=== PATIENT | female | born 1965 | race Caucasian/White ===

== ENCOUNTER 2019-12-24 05:19 | Emergency (ER) | payer BC, SELFPAY ==
[2019-12-24 05:25] VITALS: BP 134/72; PULSE 54; PULSE 65; RESP 18; TEMP 36.7; O2SAT 100; O2SAT 99; BMI 22.5
[2019-12-24 05:31] VITALS: BP 137/77; PULSE 62; RESP 18; TEMP 36.7; O2SAT 99
--- NOTE | 2019-12-24 05:59 | ED_ITS ---
HPI - Back Pain/Injury General Chief Complaint: Back Pain/Injury Stated Complaint: low back pain Time Seen by Provider: 12/24/19 05:59 History of Present Illness HPI Narrative: this is a 54-year-old female who presents via EMS with complaints of initially starting to have some back pain yesterday morning after she returned from her walk and states that it is left lower back with wrapping around to the anterior abdominal area and she denies any associated bowel or bladder dysfunction as well as denying numbness/ tingling / weakness into either lower extremity. However, the pain has made it difficult for her to walk and this has not been associated with any fever, chills, vomiting, diarrhea but she does states she has had some mild nausea and what she believes to be increased urinary frequency. Related Data Home Medications Medication Instructions Recorded Confirmed levothyroxine [Synthroid] 100 mcg PO DAILY 12/24/19 12/24/19 liothyronine 5 mcg PO DAILY 12/24/19 12/24/19 Previous Rx's Medication Instructions Recorded ketorolac 10 mg PO Q6H PRN 5 Days #20 tab 12/24/19 Allergies Allergy/AdvReac Type Severity Reaction Status Date / Time Sulfa (Sulfonamide Allergy Intermediate HIVES Verified 12/24/19 05:23 Antibiotics) Review of Systems Review of Systems: Pertinent positives and negatives as stated in the HPI 10 point review of systems is otherwise negative. [facility] Past Medical History Source: nursing notes reviewed Medical History Thyroid cancer Surgical History Status post removal of thyroid nodule Social History Social History Alcohol intake: current Alcohol intake frequency: holidays/special occasions only Alcohol type: other Smoking Status: Never smoker Smoked in Last 30 Days: No Use of substances other than those prescribed or required for medical reasons: No Advance Directives: No Advance Directives Information Provided: No Physical Exam Vital Signs: Vital Signs: Vital Signs Temp Pulse Resp BP Pulse Ox 12/24/19 05:31 98.1 F 62 18 137/77 99 12/24/19 05:25 98.1 F 54 18 99 Body Mass Index 22.5 VITAL SIGNS: Reviewed. GENERAL: Well developed, well nourished, in no acute distress. HEAD: Normocephalic/atraumatic, EYES: PERRLA, EOMI intact without pain, no nystagmus/pallor/icterus noted EARS: Ext canals without abnormality, TMs non-bulging and non-erythematous NOSE: Nares patent bilateral OROPHARYNX: no oral lesions noted, posterior pharynx clear and non-erythematous without noted tonsillar enlargement/erythema/exudates NECK: Supple, no adenopathy LUNGS: Normal breath sounds. No adventitious sounds or accessory muscle use. SpO2<99%> BACK: No CVA tenderness, no appreciable muscle spasm CARDIOVASCULAR: Regular rate and rhythm without noted murmurs, no JVD or lower extremity edema. ABDOMEN: Soft, non-tender, non-distended with bowel sounds. No rigidity. No guarding. No palpable masses or hernias noted MUSCULOSKELETAL: No tenderness, deformities, or effusions noted on gross inspection. EXTREMITIES: No cyanosis, clubbing or edema. SKIN: Inspection of the skin reveals no rashes, ulcerations, jaundice, pallor, or petechiae. NEUROLOGIC: Alert and oriented x 4. Strength and sensation to light touch were grossly intact x 4. Course Course Course Narrative: This is a 54-year-old female with history and clinical presentation suggestive of back spasm and less likely renal colic, UTI, pyelonephritis and doubt diverticulitis. - labs - UA - pain medication On review of all investigations there is no evidence for an acute infection, anemia, electrolyte abnormality, or UTI. In addition, there is no evidence renal colic and patient has had improvement in pain symptoms after having received combination Tylenol/ Toradol. Patient was informed all results and findings and will be provided a lidocaine patch and then discharged home in stable condition with a analgesic regimen and instructed to follow-up with her primary care provider. MDM - Back Pain/Injury Lab Data Result diagrams: 12/24/19 06:20 12/24/19 06:20 Labs: Lab Results 12/24/19 12/24/19 12/24/19 Range/Units 06:20 06:20 06:37 WBC 4.5 L (4.8-10.8) X10*3/uL RBC 4.51 (4.20-5.50) X10*6/uL Hgb 13.7 (12.0-16.0) g/dl Hct 40.7 (37-47) % MCV 90.2 (80-98) fL MCH 30.4 (27.0-33.0) pg MCHC 33.7 (31.0-35.0) g/dl RDW 12.1 (11.0-16.0) % Plt Count 251 (160-400) X10*3/uL MPV 9.1 L (9.4-12.3) fL Immature Gran % (Auto) 0.2 (0.0-0.4) % Neut % (Auto) 59.6 (45-73) % Lymph % (Auto) 28.0 (20-40) % [place] % (Auto) 9.3 (2-11) % Eos % (Auto) 2.2 (0-4) % Baso % (Auto) 0.7 (0-2) % Lymph # (Auto) 1.3 (1.2-4.9) X10*3/uL [place] # (Auto) 0.4 (0.1-1.2) X10*3/uL Eos # (Auto) 0.1 (0.0-0.4) X10*3/uL Baso # (Auto) 0.0 (0.0-0.2) X10*3/uL Abs Immat Gran (auto) 0.01 (0.00-0.03) X10*3/uL Absolute Neuts (auto) 2.7 (2.0-8.3) X10*3/uL Absolute Nucleated RBC 0.000 (0.0-0.012) X10*3/uL Nucleated RBC % (auto) 0.0 (0.0-0.2) /100WBC Sodium 135 (135-145) mmol/L Potassium 4.4 (3.3-5.1) mmol/l Chloride 103 (96-108) mmol/L Carbon Dioxide 25 (22-29) mmol/L Anion Gap 11 L (12-20) BUN 17 H (9-16) mg/dL Creatinine 0.81 (0.5-1.4) mg/dL Estim Creat Clear Calc 71.4 Estimated GFR > 60 Random Glucose 95 (60-115) mg/dL Calcium 9.6 (8.4-10.2) mg/dL Total Bilirubin 0.5 (0.0-1.0) mg/dL AST 15 (5-31) U/L ALT 16 (0-31) U/L Alkaline Phosphatase 73 (39-117) U/L Total Protein 6.6 (6.5-8.0) g/dL Albumin 4.0 (3.5-5.0) g/dL Urine Color YELLOW Urine Appearance CLEAR Urine pH 5.5 (5.0-8.0) Ur Specific [place] 1.010 (1.005-1.025) Urine Protein NEG (NEG-TRACE) MG/DL Urine Glucose (UA) NEG (NEG) MG/DL Urine Ketones NEG (NEG) MG/DL Urine Blood NEG (NEG) Urine Nitrite NEG (NEG) Ur Leukocyte Esterase NEG (NEG) Discharge Plan Discharge Clinical Impression: Muscle spasm of back Patient Disposition: Home, Self-Care Instructions: Muscle Spasm (ED) Additional Instructions: 1. Tylenol 1000 mg, orally, every 6 hours as needed for pain control. Do not exceed 4000 mg within 24 hours. 2. Lidocaine patch, available at any drug store, apply to area of maximal tenderness as directed on the outside packaging. 3. Please follow-up with your primary care provider for further evaluation and management as an outpatient. The patient and/or family acknowledge understanding of results (as applicable), diagnosis, treatment plan, need for follow up, and symptoms that should prompt a return to the emergency room. Prescriptions: New ketorolac 10 mg tablet 10 mg PO Q6H PRN (Reason: pain) 5 Days Qty: 20 RF: 0 No Action liothyronine 5 mcg tablet 5 mcg PO DAILY RF: 0 levothyroxine [Synthroid] 100 mcg Tablet 100 mcg PO DAILY RF: 0 Referrals: River Vasquez MD [Primary Care Provider] - 2 days ( back spasm)
[2019-12-24] MEDS: Acetaminophen 325 MG TABLET 975 MG PO (06:14)
[2019-12-24 06:26] LABS: MANUAL DIFF FLAG NO
[2019-12-24 06:39] LABS: Basophils Percent Auto 0.7 % (0-2); Eosinophils Absolute Auto 0.1 X10*3/uL (0.0-0.4); Eosinophils Percent Auto 2.2 % (0-4); Hematocrit 40.7 % (37-47); Hemoglobin 13.7 g/dl (12.0-16.0); Imm Gran Abs Auto 0.01 X10*3/uL (0.00-0.03); Imm Gran Pct Auto 0.2 % (0.0-0.4); Lymphocytes Absolute Auto 1.3 X10*3/uL (1.2-4.9); Mean Corpuscular HGB Conc 33.7 g/dl (31.0-35.0); Mean Corpuscular Hemoglobin 30.4 pg (27.0-33.0); Mean Corpuscular Volume 90.2 fL (80-98); Mean Platelet Volume 9.1 fL (9.4-12.3); Monocytes Absolute Auto 0.4 X10*3/uL (0.1-1.2); Monocytes Percent Auto 9.3 % (2-11); Neutrophils Absolute Auto 2.7 X10*3/uL (2.0-8.3); Neutrophils Percent Auto 59.6 % (45-73); Platelet Count 251 X10*3/uL (160-400); Red Blood Count 4.51 X10*6/uL (4.20-5.50); Red Cell Distribution Width 12.1 % (11.0-16.0); White Blood Count 4.5 X10*3/uL (4.8-10.8)
[2019-12-24 06:50] LABS: Glucose Urine UA NEG (NEG); Leukocyte Esterase Urine NEG (NEG); Nitrite Urine NEG (NEG); PH 5.5 (5.0-8.0); Urine Blood NEG (NEG); Urine Ketones NEG (NEG); Urine Protein NEG (NEG-TRACE)
[2019-12-24 06:52] LABS: Appearance Urine CLEAR; Color Urine YELLOW
[2019-12-24 07:04] LABS: Alanine Aminotransferase 16 U/L (0-31); Alkaline Phosphatase 73 U/L (39-117); Anion Gap 11 (12-20); Aspartate Amino Transferase 15 U/L (5-31); Bilirubin Total 0.5 mg/dL (0.0-1.0); Blood Urea Nitrogen 17 mg/dL (9-16); Calcium 9.6 mg/dL (8.4-10.2); Carbon Dioxide 25 mmol/L (22-29); Chloride 103 mmol/L (96-108); Creatinine Clr Calc Pharmacy 71.4; Estimated Glomerular Filt Rate > 60; Glucose Random 95 mg/dL (60-115); Potassium 4.4 mmol/l (3.3-5.1); Sodium 135 mmol/L (135-145); Total Protein 6.6 g/dL (6.5-8.0)
[2019-12-24] MEDS: Lidocaine 4 % Patch ADH..PATCH 1 PATCH TRANSDERMA (07:53)
== END 2019-12-24 08:24 | disposition home or self-care (01) ==
PROVIDERS: Emergency Provider Student in an Organized Health Care Education/Training Program; PCP Family Medicine
DX: M62.830 Muscle spasm of back (principal); Z85.850 Personal history of malignant neoplasm of thyroid
CPT/HCPCS: 36415; 80053; 81003; 85025; 96374; 99284

== ENCOUNTER 2019-12-26 11:35 | Outpatient (REF) | payer BC, SELFPAY ==
--- NOTE | 2019-12-26 11:42 | XR_ITS ---
EXAMINATION: XR LUMBOSACRAL SPINE CLINICAL INFORMATION: Muscle pain and spasm. COMPARISON: CT scan of the abdomen and pelvis 10/11/2017. TECHNIQUE: Three views of the lumbosacral spine. FINDINGS: Alignment is normal. Vertebral body heights are preserved. No acute fracture. Intervertebral disc spaces are maintained. Sacroiliac joints are symmetric. Visualized bowel gas pattern is normal. XR/XR lumbar spine 2-3V IMPRESSION: Normal lumbar spine radiographs.
== END 2019-12-26 11:36 | disposition home or self-care (01) ==
LOC: HO.XRAY 11:35
PROVIDERS: PCP Family Medicine; Visit Provider Family Medicine
DX: M62.838 Other muscle spasm (principal); R52 Pain, unspecified
CPT/HCPCS: 72100

== ENCOUNTER 2020-01-21 09:06 | Outpatient (REF) | payer BC, SELFPAY ==
[2020-01-21 10:45] LABS: MANUAL DIFF FLAG NO
[2020-01-21 10:57] LABS: Basophils Percent Auto 0.8 % (0-2); Eosinophils Absolute Auto 0.1 X10*3/uL (0.0-0.4); Eosinophils Percent Auto 1.5 % (0-4); Hematocrit 41.6 % (37-47); Hemoglobin 13.8 g/dl (12.0-16.0); Imm Gran Abs Auto 0.01 X10*3/uL (0.00-0.03); Imm Gran Pct Auto 0.2 % (0.0-0.4); Lymphocytes Absolute Auto 1.7 X10*3/uL (1.2-4.9); Lymphocytes Percent Auto 33.5 % (20-40); Mean Corpuscular HGB Conc 33.2 g/dl (31.0-35.0); Mean Corpuscular Hemoglobin 29.9 pg (27.0-33.0); Mean Corpuscular Volume 90.2 fL (80-98); Mean Platelet Volume 9.3 fL (9.4-12.3); Monocytes Absolute Auto 0.5 X10*3/uL (0.1-1.2); Monocytes Percent Auto 8.9 % (2-11); Neutrophils Absolute Auto 2.9 X10*3/uL (2.0-8.3); Neutrophils Percent Auto 55.1 % (45-73); Platelet Count 255 X10*3/uL (160-400); Red Blood Count 4.61 X10*6/uL (4.20-5.50); Red Cell Distribution Width 11.9 % (11.0-16.0); White Blood Count 5.2 X10*3/uL (4.8-10.8)
[2020-01-21 11:31] LABS: Alanine Aminotransferase 15 U/L (0-31); Albumin Level 4.4 g/dL (3.5-5.0); Alkaline Phosphatase 83 U/L (39-117); Anion Gap 11 (12-20); Aspartate Amino Transferase 16 U/L (5-31); Bilirubin Total 0.4 mg/dL (0.0-1.0); Blood Urea Nitrogen 9 mg/dL (9-16); Calcium 9.7 mg/dL (8.4-10.2); Carbon Dioxide 28 mmol/L (22-29); Chloride 101 mmol/L (96-108); Estimated Glomerular Filt Rate > 60; Glucose Random 61 mg/dL (60-115); Lipase 35 U/L (8-78); Potassium 4.2 mmol/l (3.3-5.1); Sodium 136 mmol/L (135-145); Total Protein 6.9 g/dL (6.5-8.0)
[2020-01-21 11:57] LABS: Erythrocyte Sedimentation Rate 8 MM/HR (0-20)
== END 2020-01-21 09:07 | disposition home or self-care (01) ==
LOC: HO.10HDL 09:06
PROVIDERS: Visit Provider Family Medicine
DX: R11.0 Nausea (principal); M54.9 Dorsalgia, unspecified; R10.13 Epigastric pain
CPT/HCPCS: 36415; 80053; 83690; 85025; 85652

== ENCOUNTER 2020-06-02 17:17 | Outpatient (REF) | payer BC, SELFPAY ==
[2020-06-02 18:07] LABS: MANUAL DIFF FLAG NO
[2020-06-02 18:09] LABS: Basophils Percent Auto 0.5 % (0-2); Eosinophils Absolute Auto 0.1 X10*3/uL (0.0-0.4); Eosinophils Percent Auto 1.4 % (0-4); Hematocrit 41.4 % (37-47); Hemoglobin 13.9 g/dl (12.0-16.0); Imm Gran Abs Auto 0.01 X10*3/uL (0.00-0.03); Imm Gran Pct Auto 0.2 % (0.0-0.4); Lymphocytes Absolute Auto 2.3 X10*3/uL (1.2-4.9); Lymphocytes Percent Auto 36.3 % (20-40); Mean Corpuscular HGB Conc 33.6 g/dl (31.0-35.0); Mean Corpuscular Hemoglobin 30.3 pg (27.0-33.0); Mean Corpuscular Volume 90.2 fL (80-98); Mean Platelet Volume 9.7 fL (9.4-12.3); Monocytes Absolute Auto 0.6 X10*3/uL (0.1-1.2); Monocytes Percent Auto 9.2 % (2-11); Neutrophils Absolute Auto 3.3 X10*3/uL (2.0-8.3); Neutrophils Percent Auto 52.4 % (45-73); Platelet Count 276 X10*3/uL (160-400); Red Blood Count 4.59 X10*6/uL (4.20-5.50); Red Cell Distribution Width 12.4 % (11.0-16.0); White Blood Count 6.3 X10*3/uL (4.8-10.8)
[2020-06-02 18:30] LABS: Alanine Aminotransferase 18 U/L (0-31); Albumin Level 4.4 g/dL (3.5-5.0); Alkaline Phosphatase 77 U/L (39-117); Anion Gap 13 (12-20); Aspartate Amino Transferase 16 U/L (5-31); Bilirubin Total 0.3 mg/dL (0.0-1.0); Blood Urea Nitrogen 15 mg/dL (9-16); Calcium 9.6 mg/dL (8.4-10.2); Carbon Dioxide 29 mmol/L (22-29); Chloride 102 mmol/L (96-108); Estimated Glomerular Filt Rate > 60; Glucose Random 87 mg/dL (60-115); Potassium 3.7 mmol/L (3.3-5.1); Sodium 140 mmol/L (135-145); Total Protein 7.2 g/dL (6.5-8.0)
[2020-06-02 18:51] LABS: Free T4 (Free Thyroxine) 1.04 ng/dL (0.71-1.85); Thyroid Stimulating Hormone 0.34 uIU/mL (0.32-4.0)
== END 2020-06-02 17:18 | disposition home or self-care (01) ==
LOC: HO.LAB 17:17
PROVIDERS: PCP Family Medicine; Visit Provider Family Medicine
DX: R53.83 Other fatigue (principal); R55 Syncope and collapse; E03.9 Hypothyroidism, unspecified
CPT/HCPCS: 36415; 80053; 84439; 84443; 85025

== ENCOUNTER 2020-08-06 09:17 | Outpatient (REF) | payer BC, SELFPAY ==
--- NOTE | ~2020-08-06 | MM_ITS ---
EXAMINATION: MM SCREENING DIGITAL BREAST TOMOSYNTHESIS, BILATERAL CLINICAL INFORMATION: Screening. Asymptomatic. Prior history left breast biopsy at 2 sites (no clips placed, fibroadenoma). Prior history right breast ultrasound-guided core biopsies (fibroadenomas, clips present). The lifetime risk of breast cancer based on the Tyrer-Cuzick Model is 9%. COMPARISON: Mammography: 02/07/2019, 02/20/2017, 07/23/2015; targeted left breast ultrasound 07/23/2015. TECHNIQUE: Digital breast tomosynthesis is performed in both the craniocaudal and mediolateral oblique views along with computer-aided detection (CAD). Synthesized 2D images are generated from the tomosynthesis. FINDINGS: There are scattered areas of fibroglandular density (ACR BI-RADS breast composition Category b). There are no significant changes from prior studies. Again, there are 2 stable masses right breast mid and posterior upper outer quadrant with adjacent biopsy clip markers and stable nodular asymmetries retroareolar and medial left breast. There is no developing density or interval mass or architectural abnormality. Again, there are numerous grouped calcifications which are similar in distribution and number from prior study. There is mild chronic bilateral nipple retraction. MM/MM tomosynthesis screening BI IMPRESSION: No significant changes from prior studies. ASSESSMENT: BI-RADS 2: Benign RECOMMENDATION: Routine annual mammography screening. This patient's information was entered into a reminder system with a target due date for their next mammogram.
== END 2020-08-06 09:18 | disposition home or self-care (01) ==
LOC: HO.MAMMO 09:17
PROVIDERS: Visit Provider Obstetrics & Gynecology
DX: Z12.31 Encounter for screening mammogram for malignant neoplasm of breast (principal)
CPT/HCPCS: 77063; 77067

== ENCOUNTER 2021-01-31 06:57 | Outpatient (REF) | payer BC, SELFPAY ==
[2021-01-31 07:18] LABS: MANUAL DIFF FLAG NO
[2021-01-31 07:32] LABS: Basophils Absolute Auto 0.1 X10*3/uL (0.0-0.2); Basophils Percent Auto 1.6 % (0-2); Eosinophils Absolute Auto 0.1 X10*3/uL (0.0-0.4); Eosinophils Percent Auto 2.1 % (0-4); Hematocrit 41.7 % (37.0-47.0); Hemoglobin 13.9 g/dl (12.0-16.0); Imm Gran Abs Auto 0.01 X10*3/uL (0.00-0.03); Imm Gran Pct Auto 0.2 % (0.0-0.4); Lymphocytes Absolute Auto 1.7 X10*3/uL (1.2-4.9); Lymphocytes Percent Auto 39.9 % (20-40); Mean Corpuscular HGB Conc 33.3 g/dl (31.0-35.0); Mean Corpuscular Hemoglobin 30.3 pg (27.0-33.0); Mean Corpuscular Volume 90.8 fL (80.0-98.0); Mean Platelet Volume 9.3 fL (9.4-12.3); Monocytes Absolute Auto 0.4 X10*3/uL (0.1-1.2); Monocytes Percent Auto 8.9 % (2-11); Neutrophils Absolute Auto 2.1 x10*3/uL (2.0-8.3); Neutrophils Percent Auto 47.3 % (45-73); Platelet Count 279 X10*3/uL (160-400); Red Blood Count 4.59 X10*6/uL (4.20-5.50); Red Cell Distribution Width 12.8 % (11.0-16.0); White Blood Count 4.4 X10*3/uL (4.8-10.8)
[2021-01-31 07:58] LABS: Alanine Aminotransferase 20 U/L (0-31); Albumin Level 4.2 g/dL (3.5-5.0); Alkaline Phosphatase 72 U/L (39-117); Anion Gap 13 (12-20); Aspartate Amino Transferase 17 U/L (5-31); Bilirubin Total 0.3 mg/dL (0.0-1.0); Blood Urea Nitrogen 24 mg/dL (9-16); Calcium 9.9 mg/dL (8.4-10.2); Carbon Dioxide 26 mmol/L (22-29); Chloride 103 mmol/L (96-108); Cholesterol 278 mg/dL; Estimated Glomerular Filt Rate > 60; Glucose Fasting 101 mg/dL (60-99); HDL Cholesterol 63 mg/dL; LDL Cholesterol Calculated 196 mg/dl; Potassium 4.5 mmol/L (3.3-5.1); Sodium 137 mmol/L (135-145); Total Protein 6.9 g/dL (6.5-8.0); Triglycerides 97 mg/dL
[2021-02-01 14:51] LABS: Calcium (PTHI) 9.9 mg/dL (8.6-10.4); PTHI 48 pg/mL (14-64)
== END 2021-01-31 06:58 | disposition home or self-care (01) ==
LOC: HO.LAB 06:57
PROVIDERS: PCP Internal Medicine Medical Oncology; Visit Provider Internal Medicine Medical Oncology
DX: D36.9 Benign neoplasm, unspecified site (principal); E66.3 Overweight
CPT/HCPCS: 36415; 80053; 80061; 83970; 85025

== ENCOUNTER 2021-03-11 09:10 | Outpatient (REF) | payer BC, SELFPAY ==
--- NOTE | ~2021-03-11 | MM_ITS ---
EXAMINATION: BONE DENSITOMETRY CLINICAL INDICATION: Osteoporosis. COMPARISON: This is the patient's baseline examination. TECHNIQUE: Using a [employer] DXA System (software version: 13.1) manufactured by [employer], dual-energy x-ray absorptiometry was performed of the lumbar spine and left hip. The images are of good technical quality. Summary results are attached. FINDINGS: AP SPINE L1-L4: BMD 1.032 g/cm2, Z-score -0.2, T-score -1.2, osteopenia. LEFT FEMUR, NECK: BMD 0.831 g/cm2, Z-score -0.4, T-score -1.5, osteopenia. LEFT FEMUR, TOTAL: BMD 0.960 g/cm2, Z-score 0.4, T-score -0.4, normal. IDENTIFIED RISK FACTORS: Menopause. HISTORY OF FRACTURE: None listed. MEDICATIONS: Calcium, vitamin D. MM/XR DEXA axial skeleton IMPRESSION: 1. DIAGNOSIS: Osteopenia based on the lowest T-score value of -1.5 in the femoral neck applying World Health Organization criteria. 2. 10-YEAR FRACTURE RISK PREDICTION, FRAX: Major osteoporotic fracture (clinical spine, forearm, hip or shoulder) 6.5%. Hip fracture 0.5%. 3. Treatment Recommendations: NOF guidelines recommend consideration for treatment in postmenopausal women and men age 50 and older presenting with the following: -A hip or vertebral (clinical or morphometric) fracture. -T-score less than or equal to -2.5 at the femoral neck or spine after appropriate evaluation to exclude secondary causes. -Low bone mass at the hip or spine and a 10-year fracture probability by FRAX of greater than or equal to 3% for hip fracture or greater than or equal to 20% for major osteoporotic fracture based on the [place] adapted WHO algorithm. 4. Other Recommendations: All treatment decisions require clinical judgment and consideration of individual patient factors, including patient preferences, comorbidities, previous drug use, risk factors not captured in the FRAX model (e.g. frailty, falls, vitamin D deficiency, increased bone turnover, interval significant decline in bone density) and possible under or overestimation of fracture risk by FRAX. Additional medical evaluation for secondary cause of low bone mineral density may be appropriate. FUTURE SCAN RECOMMENDATION: People with diagnosed cases of osteoporosis or at high risk for fracture should have regular bone mineral density tests. For patients eligible for Medicare, routine testing is allowed once every 2 years. The testing frequency can be increased to one year for patients who have rapidly progressing disease, those who are receiving or discontinuing medical therapy to restore bone mass, or have additional risk factors.
== END 2021-03-11 09:11 | disposition home or self-care (01) ==
LOC: HO.MAMMO 09:10
PROVIDERS: PCP Internal Medicine Medical Oncology; Visit Provider Internal Medicine Medical Oncology
DX: Z13.820 Encounter for screening for osteoporosis (principal); M85.80 Other specified disorders of bone density and structure, unspecified site; Z78.0 Asymptomatic menopausal state; Z79.899 Other long term (current) drug therapy
CPT/HCPCS: 77080

== ENCOUNTER 2021-03-31 06:46 | Outpatient (REF) | payer BC, SELFPAY ==
[2021-03-31 07:51] LABS: Cholesterol 280 mg/dL; HDL Cholesterol 63 mg/dL; LDL Cholesterol Calculated 196 mg/dl; Triglycerides 106 mg/dL
== END 2021-03-31 06:47 | disposition home or self-care (01) ==
LOC: HO.LAB 06:46
PROVIDERS: PCP Internal Medicine Medical Oncology; Visit Provider Internal Medicine Medical Oncology
DX: E78.00 Pure hypercholesterolemia, unspecified (principal)
CPT/HCPCS: 36415; 80061

== ENCOUNTER 2021-07-04 08:03 | Outpatient (REF) | payer BC, SELFPAY ==
[2021-07-04 08:24] LABS: MANUAL DIFF FLAG NO
[2021-07-04 08:39] LABS: Basophils Percent Auto 1.1 % (0-2); Eosinophils Absolute Auto 0.1 X10*3/uL (0.0-0.4); Eosinophils Percent Auto 1.9 % (0-4); Hematocrit 41.9 % (37.0-47.0); Hemoglobin 13.9 g/dl (12.0-16.0); Imm Gran Abs Auto 0.01 X10*3/uL (0.00-0.03); Imm Gran Pct Auto 0.3 % (0.0-0.4); Lymphocytes Absolute Auto 1.5 X10*3/uL (1.2-4.9); Lymphocytes Percent Auto 40.9 % (20-40); Mean Corpuscular HGB Conc 33.2 g/dl (31.0-35.0); Mean Corpuscular Hemoglobin 29.9 pg (27.0-33.0); Mean Corpuscular Volume 90.1 fL (80.0-98.0); Mean Platelet Volume 9.2 fL (9.4-12.3); Monocytes Absolute Auto 0.4 X10*3/uL (0.1-1.2); Monocytes Percent Auto 9.9 % (2-11); Neutrophils Absolute Auto 1.7 x10*3/uL (2.0-8.3); Neutrophils Percent Auto 45.9 % (45-73); Platelet Count 262 X10*3/uL (160-400); Red Blood Count 4.65 X10*6/uL (4.20-5.50); Red Cell Distribution Width 12.6 % (11.0-16.0); White Blood Count 3.7 X10*3/uL (4.8-10.8)
[2021-07-04 09:06] LABS: Alanine Aminotransferase 20 U/L (0-31); Albumin Level 4.3 g/dL (3.5-5.0); Alkaline Phosphatase 76 U/L (39-117); Anion Gap 10 (12-20); Aspartate Amino Transferase 17 U/L (5-31); Bilirubin Total 0.6 mg/dL (0.0-1.0); Blood Urea Nitrogen 16 mg/dL (9-16); Calcium 10.2 mg/dL (8.4-10.2); Carbon Dioxide 27 mmol/L (22-29); Chloride 106 mmol/L (96-108); Cholesterol 267 mg/dL; Estimated Glomerular Filt Rate > 60; Glucose Fasting 99 mg/dL (60-99); HDL Cholesterol 66 mg/dL; LDL Cholesterol Calculated 191 mg/dl; Potassium 4.6 mmol/L (3.3-5.1); Sodium 138 mmol/L (135-145); Total Protein 6.9 g/dL (6.5-8.0); Triglycerides 52 mg/dL
== END 2021-07-04 08:04 | disposition home or self-care (01) ==
LOC: HO.LAB 08:03
PROVIDERS: PCP Internal Medicine Medical Oncology; Visit Provider Internal Medicine Medical Oncology
DX: C73 Malignant neoplasm of thyroid gland (principal); E78.00 Pure hypercholesterolemia, unspecified
CPT/HCPCS: 36415; 80053; 80061; 82306; 85025

== ENCOUNTER 2021-08-10 09:03 | Outpatient (REF) | payer BC, SELFPAY ==
--- NOTE | ~2021-08-10 | MM_ITS ---
EXAMINATION: MM SCREENING DIGITAL BREAST TOMOSYNTHESIS, BILATERAL CLINICAL INFORMATION: Screening. Asymptomatic. The lifetime risk of breast cancer based on the Tyrer-Cuzick Model is 9.1%. COMPARISON: Mammography: August 06, 2020 and studies dating back to February 12, 2014 TECHNIQUE: Digital breast tomosynthesis is performed in both the craniocaudal and mediolateral oblique views along with computer-aided detection (CAD). Synthesized 2D images are generated from the tomosynthesis. FINDINGS: There are scattered areas of fibroglandular density (ACR BI-RADS breast composition Category b). There are no significant masses, abnormal calcifications, or other abnormalities. MM/MM tomosynthesis screening BI IMPRESSION: There are no significant changes from prior study. ASSESSMENT: BI-RADS 1: Negative RECOMMENDATION: Routine annual mammography screening. This patient's information was entered into a reminder system with a target due date for their next mammogram.
== END 2021-08-10 09:04 | disposition home or self-care (01) ==
LOC: HO.MAMMO 09:03
PROVIDERS: Visit Provider Obstetrics & Gynecology
DX: Z12.31 Encounter for screening mammogram for malignant neoplasm of breast (principal)
CPT/HCPCS: 77063; 77067

== ENCOUNTER 2021-10-17 00:30 | Emergency (ER) | payer BC, SELFPAY ==
[2021-10-17 00:58] VITALS: BP 166/76; PULSE 87; RESP 18; O2SAT 99; BMI 22.4
--- NOTE | 2021-10-17 01:12 | ECG_ITS ---
Test Reason : PALPITATIONS Blood Pressure : / mmHG Vent. Rate : 064 BPM Atrial Rate : 064 BPM P-R Int : 136 ms QRS Dur : 080 ms QT Int : 414 ms P-R-T Axes : 079 040 001 degrees QTc Int : 427 ms Sinus rhythm with Premature atrial complexes with Aberrant conduction Cannot rule out Anterior infarct , age undetermined Abnormal ECG When compared with ECG of 25-NOV-2008 13:30, Aberrant conduction is now Present Referred By: Taylor Lawrence Electronically Signed By:TAI MENDOZA
== END 2021-10-17 02:40 | disposition left against medical advice (07) ==
PROVIDERS: Emergency Provider Emergency Medicine
DX: R00.2 Palpitations (principal)
CPT/HCPCS: 93005; 99283

== ENCOUNTER 2021-11-10 07:11 | Outpatient (REF) | payer BC, SELFPAY ==
[2021-11-10 07:33] LABS: MANUAL DIFF FLAG NO
[2021-11-10 07:43] LABS: Basophils Percent Auto 0.9 % (0-2); Eosinophils Absolute Auto 0.1 X10*3/uL (0.0-0.4); Hematocrit 40.8 % (37.0-47.0); Hemoglobin 13.6 g/dl (12.0-16.0); Imm Gran Abs Auto 0.02 X10*3/uL (0.00-0.03); Imm Gran Pct Auto 0.5 % (0.0-0.4); Lymphocytes Absolute Auto 1.4 X10*3/uL (1.2-4.9); Lymphocytes Percent Auto 32.2 % (20-40); Mean Corpuscular HGB Conc 33.3 g/dl (31.0-35.0); Mean Corpuscular Hemoglobin 29.9 pg (27.0-33.0); Mean Corpuscular Volume 89.7 fL (80.0-98.0); Mean Platelet Volume 9.1 fL (9.4-12.3); Monocytes Absolute Auto 0.3 X10*3/uL (0.1-1.2); Monocytes Percent Auto 7.7 % (2-11); Neutrophils Absolute Auto 2.5 x10*3/uL (2.0-8.3); Neutrophils Percent Auto 56.7 % (45-73); Platelet Count 259 X10*3/uL (160-400); Red Blood Count 4.55 X10*6/uL (4.20-5.50); Red Cell Distribution Width 12.4 % (11.0-16.0); White Blood Count 4.4 X10*3/uL (4.8-10.8)
[2021-11-10 08:11] LABS: Alanine Aminotransferase 23 U/L (0-31); Albumin Level 4.2 g/dL (3.5-5.0); Alkaline Phosphatase 80 U/L (39-117); Anion Gap 14 (12-20); Aspartate Amino Transferase 20 U/L (5-31); Bilirubin Total 0.4 mg/dL (0.0-1.0); Blood Urea Nitrogen 12 mg/dL (9-16); Calcium 9.7 mg/dL (8.4-10.2); Carbon Dioxide 24 mmol/L (22-29); Chloride 105 mmol/L (96-108); Cholesterol 291 mg/dL; Estimated Glomerular Filt Rate > 60; Glucose Fasting 95 mg/dL (60-99); HDL Cholesterol 62 mg/dL; LDL Cholesterol Calculated 206 mg/dl; Potassium 4.4 mmol/L (3.3-5.1); Sodium 139 mmol/L (135-145); Total Protein 7.1 g/dL (6.5-8.0); Triglycerides 118 mg/dL
[2021-11-14 15:26] LABS: Neutrophil Cyto Ab Screen NEGATIVE (NEGATIVE)
== END 2021-11-10 07:12 | disposition home or self-care (01) ==
LOC: HO.LAB 07:11
PROVIDERS: PCP Internal Medicine Medical Oncology; Visit Provider Internal Medicine Medical Oncology
DX: E78.00 Pure hypercholesterolemia, unspecified (principal); D36.9 Benign neoplasm, unspecified site; K58.9 Irritable bowel syndrome, unspecified; L40.9 Psoriasis, unspecified; C73 Malignant neoplasm of thyroid gland
CPT/HCPCS: 36415; 80053; 80061; 85025; 86036; 86037

== ENCOUNTER 2021-12-02 07:45 | Outpatient (REF) | payer BC, SELFPAY ==
[2021-12-02 08:01] VITALS: BP 148/73; PULSE 58; RESP 16; TEMP 36.4; O2SAT 98
[2021-12-02 08:02] VITALS: BMI 22.4
--- NOTE | 2021-12-02 09:02 | W.PM.OPN ---
Operative Note Operative Note Date of Service: 12/02/21 Narrative: Preop diagnosis: [LEFT arm lipoma] Postop diagnosis: [same, intramuscular] Procedure: [Excision lipoma, left upper arm] Surgeon: Conor Badillo MD Assist: [None] Anesthesia: [Lidocaine, 2%] Estimated blood loss: [3cc] Specimen: [Lipoma] Intraoperative findings: [2 portions to the lipoma, superficial and intra bicipital muscle] Indications: [The patient is a 56-year-old woman with a slowly enlarging symptomatic lipoma in her left bicep above the left antecubital fossa. The options of excision versus continued observation were reviewed. The risks of bleeding, infection, seroma, recurrence and local complications that could require another procedure were all reviewed and apparently understood. The patient seemed understand and wanted to proceed.] Procedure: [The patient was identified and placed supine with her left arm abducted an appropriate timeout confirming the procedure and the sidedness was performed. The patient's skin was prepped with multiple layers of isopropyl alcohol that was allowed to dry for 3 minutes then she was draped in the usual manner. Planned incision was marked and local was infiltrated with excellent effect. Next, a transverse skin incision was made over the lipoma. Hemostasis was obtained with electrocautery. Dissection was carried around the subcutaneous portion and then it became apparent that this was a bilobed lipoma with another portion arising in the head of the biceps. Circumferential dissection was performed after additional local was infiltrated and the specimen sent for permanent section. The operative field for was inspected for hemostasis which was good. Intermediate closure using interrupted 3-0 Polysorb on the skin and subcutaneous tissues and 3-0 polypropylene sutures on the skin was performed. Patient tolerated the procedure well. Discharge instructions were reviewed and provided in writing. Patient will minimize activity with her left arm for the next few days and follow up with me for sutures in 7-10 days.]
== END 2021-12-02 07:46 | disposition home or self-care (01) ==
LOC: HO.MS 07:45
PROVIDERS: PCP Internal Medicine Medical Oncology; Visit Provider Surgery
PROC: (CPT 24076; principal; 2021-12-02 08:00)
DX: D17.22 Benign lipomatous neoplasm of skin and subcutaneous tissue of left arm (principal); Z85.850 Personal history of malignant neoplasm of thyroid; Z79.899 Other long term (current) drug therapy
CPT/HCPCS: 24076; 88304

== ENCOUNTER 2022-02-04 07:59 | Outpatient (REF) | payer BC, SELFPAY ==
[2022-02-04 09:30] LABS: Alanine Aminotransferase 16 U/L (0-31); Albumin Level 4.3 g/dL (3.5-5.0); Alkaline Phosphatase 78 U/L (39-117); Anion Gap 9 (12-20); Aspartate Amino Transferase 16 U/L (5-31); Bilirubin Total 0.5 mg/dL (0.0-1.0); Blood Urea Nitrogen 13 mg/dL (9-16); Carbon Dioxide 27 mmol/L (22-29); Chloride 102 mmol/L (96-108); Cholesterol 280 mg/dL; Estimated Glomerular Filt Rate > 60; Glucose Fasting 89 mg/dL (60-99); HDL Cholesterol 61 mg/dL; LDL Cholesterol Calculated 197 mg/dl; Potassium 4.4 mmol/L (3.3-5.1); Sodium 134 mmol/L (135-145); Total Protein 6.8 g/dL (6.5-8.0); Triglycerides 110 mg/dL
== END 2022-02-04 08:00 | disposition home or self-care (01) ==
LOC: HO.LAB 07:59
PROVIDERS: PCP Internal Medicine Medical Oncology; Visit Provider Internal Medicine Medical Oncology
DX: E78.00 Pure hypercholesterolemia, unspecified (principal)
CPT/HCPCS: 36415; 80053; 80061

== ENCOUNTER 2022-07-12 08:51 | Outpatient (REF) | payer BC, SELFPAY ==
[2022-07-12 09:14] LABS: MANUAL DIFF FLAG NO
[2022-07-12 09:34] LABS: Basophils Absolute Auto 0.1 X10*3/uL (0.0-0.2); Basophils Percent Auto 1.1 % (0-2); Eosinophils Absolute Auto 0.1 X10*3/uL (0.0-0.4); Eosinophils Percent Auto 1.7 % (0-4); Hemoglobin 14.1 g/dl (12.0-16.0); Imm Gran Abs Auto 0.01 X10*3/uL (0.00-0.03); Imm Gran Pct Auto 0.2 % (0.0-0.4); Lymphocytes Absolute Auto 1.7 X10*3/uL (1.2-4.9); Lymphocytes Percent Auto 36.1 % (20-40); Mean Corpuscular HGB Conc 33.6 g/dl (31.0-35.0); Mean Corpuscular Hemoglobin 30.2 pg (27.0-33.0); Mean Corpuscular Volume 89.9 fL (80.0-98.0); Mean Platelet Volume 9.4 fL (9.4-12.3); Monocytes Absolute Auto 0.4 X10*3/uL (0.1-1.2); Monocytes Percent Auto 8.8 % (2-11); Neutrophils Absolute Auto 2.4 x10*3/uL (2.0-8.3); Neutrophils Percent Auto 52.1 % (45-73); Platelet Count 269 X10*3/uL (160-400); Red Blood Count 4.67 X10*6/uL (4.20-5.50); Red Cell Distribution Width 12.4 % (11.0-16.0); White Blood Count 4.7 X10*3/uL (4.8-10.8)
[2022-07-12 10:22] LABS: Alanine Aminotransferase 15 U/L (0-31); Albumin Level 4.4 g/dL (3.5-5.0); Alkaline Phosphatase 81 U/L (39-117); Anion Gap 9 (12-20); Aspartate Amino Transferase 17 U/L (5-31); Bilirubin Total 0.7 mg/dL (0.0-1.0); Blood Urea Nitrogen 14 mg/dL (9-16); Carbon Dioxide 29 mmol/L (22-29); Chloride 105 mmol/L (96-108); Cholesterol 282 mg/dL; Estimated Glomerular Filt Rate > 60; Glucose Random 87 mg/dL (60-115); HDL Cholesterol 60 mg/dL; LDL Cholesterol Calculated 200 mg/dl; Potassium 4.2 mmol/L (3.3-5.1); Sodium 139 mmol/L (135-145); Total Protein 6.9 g/dL (6.5-8.0); Triglycerides 113 mg/dL
[2022-07-12 10:38] LABS: Thyroid Stimulating Hormone 0.21 uIU/mL (0.32-4.0)
== END 2022-07-12 08:52 | disposition home or self-care (01) ==
LOC: HO.LAB 08:51
PROVIDERS: PCP Internal Medicine Medical Oncology; Visit Provider Internal Medicine Medical Oncology
DX: D36.9 Benign neoplasm, unspecified site (principal); E78.00 Pure hypercholesterolemia, unspecified; C73 Malignant neoplasm of thyroid gland; D70.9 Neutropenia, unspecified
CPT/HCPCS: 36415; 80053; 80061; 84443; 85025

== ENCOUNTER 2022-08-14 09:11 | Outpatient (REF) | payer BC, SELFPAY ==
--- NOTE | ~2022-08-14 | MM_ITS ---
EXAMINATION: MM SCREENING DIGITAL BREAST TOMOSYNTHESIS, BILATERAL CLINICAL INFORMATION: Screening. Asymptomatic. Prior history left breast biopsy at 2 sites (no clips placed, fibroadenoma). Prior history right breast ultrasound-guided core biopsies (fibroadenomas, clips present). The lifetime risk of breast cancer based on the Tyrer-Cuzick Model is 10%. COMPARISON: Mammography: 08/10/2021, 08/06/2020, 02/07/2019 TECHNIQUE: Digital breast tomosynthesis is performed in both the craniocaudal and mediolateral oblique views along with computer-aided detection (CAD). Synthesized 2D images are generated from the tomosynthesis. FINDINGS: There are scattered areas of fibroglandular density (ACR BI-RADS breast composition Category b). Breast parenchymal pattern is similar to prior studies. Left breast has 2 stable macrolobulated masses anterior mid medial breast. There are 2 stable masses right upper outer quadrant each with biopsy clip markers. There is no interval significant mass or architectural abnormality or developing density. There are scattered bilateral isolated and grouped round calcifications similar to prior studies. The axilla and skin contours are unremarkable. No significant changes. MM/MM tomosynthesis screening BI IMPRESSION: No mammographic evidence of malignancy. ASSESSMENT: BI-RADS 2: Benign RECOMMENDATION: Routine annual mammography screening. This patient's information was entered into a reminder system with a target due date for their next mammogram.
== END 2022-08-14 09:12 | disposition home or self-care (01) ==
LOC: HO.MAMMO 09:11
PROVIDERS: PCP Internal Medicine Medical Oncology; Visit Provider Internal Medicine Medical Oncology
DX: Z12.31 Encounter for screening mammogram for malignant neoplasm of breast (principal)
CPT/HCPCS: 77063; 77067

== ENCOUNTER 2023-01-11 10:12 | Outpatient (REF) | payer BC, SELFPAY ==
[2023-01-11 10:52] LABS: MANUAL DIFF FLAG NO
[2023-01-11 10:57] LABS: Basophils Absolute Auto 0.1 X10*3/uL (0.0-0.2); Basophils Percent Auto 1.1 % (0-2); Eosinophils Absolute Auto 0.1 X10*3/uL (0.0-0.4); Eosinophils Percent Auto 1.1 % (0-4); Hematocrit 43.2 % (37.0-47.0); Hemoglobin 14.6 g/dl (12.0-16.0); Imm Gran Abs Auto 0.01 X10*3/uL (0.00-0.03); Imm Gran Pct Auto 0.2 % (0.0-0.4); Lymphocytes Absolute Auto 1.9 X10*3/uL (1.2-4.9); Lymphocytes Percent Auto 33.2 % (20-40); Mean Corpuscular HGB Conc 33.8 g/dl (31.0-35.0); Mean Corpuscular Hemoglobin 30.5 pg (27.0-33.0); Mean Corpuscular Volume 90.4 fL (80.0-98.0); Mean Platelet Volume 9.4 fL (9.4-12.3); Monocytes Absolute Auto 0.5 X10*3/uL (0.1-1.2); Monocytes Percent Auto 9.6 % (2-11); Neutrophils Absolute Auto 3.1 x10*3/uL (2.0-8.3); Neutrophils Percent Auto 54.8 % (45-73); Platelet Count 289 X10*3/uL (160-400); Red Blood Count 4.78 X10*6/uL (4.20-5.50); Red Cell Distribution Width 12.3 % (11.0-16.0); White Blood Count 5.6 X10*3/uL (4.8-10.8)
[2023-01-11 11:17] LABS: Alanine Aminotransferase 17 U/L (0-31); Albumin Level 4.6 g/dL (3.5-5.0); Alkaline Phosphatase 80 U/L (39-117); Anion Gap 13 (12-20); Aspartate Amino Transferase 19 U/L (5-31); Bilirubin Total 0.5 mg/dL (0.0-1.0); Blood Urea Nitrogen 12 mg/dL (9-16); Calcium 10.3 mg/dL (8.4-10.2); Carbon Dioxide 27 mmol/L (22-29); Chloride 103 mmol/L (96-108); Cholesterol 314 mg/dL (<200); Estimated Glomerular Filt Rate > 60; Glucose Fasting 94 mg/dL (60-99); HDL Cholesterol 70 mg/dL (>40); LDL Cholesterol Calculated 225 mg/dL (<100); Potassium 3.7 mmol/L (3.3-5.1); Sodium 139 mmol/L (135-145); Total Protein 7.7 g/dL (6.5-8.0); Triglycerides 97 mg/dL (<150)
[2023-01-11 11:47] LABS: Free T4 (Free Thyroxine) 1.08 ng/dL (0.71-1.85); Thyroid Stimulating Hormone 0.59 uIU/mL (0.32-4.0)
== END 2023-01-11 10:13 | disposition home or self-care (01) ==
LOC: HO.10HDL 10:12
PROVIDERS: Visit Provider Internal Medicine Medical Oncology
DX: K58.9 Irritable bowel syndrome, unspecified (principal); E78.00 Pure hypercholesterolemia, unspecified; C73 Malignant neoplasm of thyroid gland
CPT/HCPCS: 36415; 80053; 80061; 84439; 84443; 85025

== ENCOUNTER 2023-06-28 13:09 | Outpatient (REF) | payer BC, SELFPAY ==
[2023-06-28 13:22] LABS: MANUAL DIFF FLAG NO
[2023-06-28 14:17] LABS: Basophils Percent Auto 0.7 % (0-2); Eosinophils Absolute Auto 0.1 X10*3/uL (0.0-0.4); Hematocrit 43.2 % (37.0-47.0); Hemoglobin 14.6 g/dl (12.0-16.0); Imm Gran Abs Auto 0.01 X10*3/uL (0.00-0.03); Imm Gran Pct Auto 0.2 % (0.0-0.4); Lymphocytes Absolute Auto 1.9 X10*3/uL (1.2-4.9); Lymphocytes Percent Auto 31.6 % (20-40); Mean Corpuscular HGB Conc 33.8 g/dl (31.0-35.0); Mean Corpuscular Volume 88.9 fL (80.0-98.0); Mean Platelet Volume 9.6 fL (9.4-12.3); Monocytes Absolute Auto 0.5 X10*3/uL (0.1-1.2); Monocytes Percent Auto 7.8 % (2-11); Neutrophils Absolute Auto 3.5 x10*3/uL (2.0-8.3); Neutrophils Percent Auto 58.7 % (45-73); Platelet Count 288 X10*3/uL (160-400); Red Blood Count 4.86 X10*6/uL (4.20-5.50); Red Cell Distribution Width 12.9 % (11.0-16.0)
[2023-06-28 15:02] LABS: Thyroid Stimulating Hormone 0.44 uIU/mL (0.32-4.0)
[2023-06-28 15:11] LABS: Anion Gap 9 (12-20)
[2023-06-28 15:15] LABS: Alanine Aminotransferase 24 U/L (0-31); Albumin Level 4.5 g/dL (3.5-5.0); Alkaline Phosphatase 79 U/L (39-117); Aspartate Amino Transferase 19 U/L (5-31); Bilirubin Total 0.5 mg/dL (0.0-1.0); Blood Urea Nitrogen 15 mg/dL (9-16); Calcium 10.2 mg/dL (8.4-10.2); Carbon Dioxide 29 mmol/L (22-29); Chloride 106 mmol/L (96-108); Cholesterol 294 mg/dL (<200); Estimated Glomerular Filt Rate > 60; Glucose Fasting 91 mg/dL (60-99); HDL Cholesterol 73 mg/dL (>40); LDL Cholesterol Calculated 206 mg/dL (<100); Potassium 3.9 mmol/L (3.3-5.1); Sodium 140 mmol/L (135-145); Total Protein 7.6 g/dL (6.5-8.0); Triglycerides 76 mg/dL (<150)
== END 2023-06-28 13:10 | disposition home or self-care (01) ==
LOC: HO.LAB 13:09
PROVIDERS: PCP Internal Medicine Medical Oncology; Visit Provider Internal Medicine Medical Oncology
DX: D36.9 Benign neoplasm, unspecified site (principal); K58.9 Irritable bowel syndrome, unspecified; E78.00 Pure hypercholesterolemia, unspecified; C73 Malignant neoplasm of thyroid gland; D70.9 Neutropenia, unspecified
CPT/HCPCS: 36415; 80053; 80061; 84439; 84443; 85025

== ENCOUNTER 2023-08-16 09:15 | Outpatient (REF) | payer BC, SELFPAY ==
--- NOTE | ~2023-08-16 | MM_ITS ---
EXAMINATION: MM SCREENING DIGITAL BREAST TOMOSYNTHESIS, BILATERAL CLINICAL INFORMATION: Screening. Asymptomatic. COMPARISON: Mammography: This study is compared with prior exams dating back to 2020. TECHNIQUE: Digital breast tomosynthesis is performed in both the craniocaudal and mediolateral oblique views along with computer-aided detection (CAD). Synthesized 2D images are generated from the tomosynthesis. FINDINGS: There are scattered areas of fibroglandular density (ACR BI-RADS breast composition Category b). There are no significant masses, abnormal calcifications, or other abnormalities. There are 2 tissue markers associated with previously biopsied, benign masses. There is a coarse calcification in an unchanged, lobulated, benign, previously biopsied, retroareolar mass of the left breast. MM/MM tomosynthesis screening BI IMPRESSION: No mammographic evidence of malignancy. ASSESSMENT: BI-RADS BI-RADS 2 - Benign Findings RECOMMENDATION: Routine annual mammography screening. 1 year F/U This examination should not preclude the clinical evaluation of a suspicious palpable abnormality. This patient's information was entered into a reminder system with a target due date for their next mammogram.
== END 2023-08-16 09:16 | disposition home or self-care (01) ==
LOC: HO.MAMMO 09:15
PROVIDERS: PCP Internal Medicine Medical Oncology; Visit Provider Internal Medicine Medical Oncology
DX: Z12.31 Encounter for screening mammogram for malignant neoplasm of breast (principal)
CPT/HCPCS: 77063; 77067

== ENCOUNTER → 2023-08-16 09:15 | Outpatient (BNV) | payer BC, SELFPAY | PROVIDERS: PCP Internal Medicine Medical Oncology; Visit Provider Radiology Diagnostic Radiology | DX: Z12.31 Encounter for screening mammogram for malignant neoplasm of breast (principal) | CPT/HCPCS: 77063; 77067 ==

== ENCOUNTER 2024-01-16 10:07 | Outpatient (REF) | payer BC, SELFPAY ==
[2024-01-16 10:21] LABS: MANUAL DIFF FLAG NO
[2024-01-16 10:44] LABS: Basophils Percent Auto 0.7 % (0-2); Eosinophils Absolute Auto 0.1 X10*3/uL (0.0-0.4); Eosinophils Percent Auto 1.5 % (0-4); Hematocrit 42.7 % (37.0-47.0); Hemoglobin 14.9 g/dl (12.0-16.0); Lymphocytes Absolute Auto 1.7 X10*3/uL (1.2-4.9); Lymphocytes Percent Auto 36.4 % (20-40); Mean Corpuscular HGB Conc 34.9 g/dl (31.0-35.0); Mean Corpuscular Hemoglobin 31.1 pg (27.0-33.0); Mean Corpuscular Volume 89.1 fL (80.0-98.0); Mean Platelet Volume 9.4 fL (9.4-12.3); Monocytes Absolute Auto 0.4 X10*3/uL (0.1-1.2); Monocytes Percent Auto 8.1 % (2-11); Neutrophils Absolute Auto 2.4 x10*3/uL (2.0-8.3); Neutrophils Percent Auto 53.3 % (45-73); Platelet Count 279 X10*3/uL (160-400); Red Blood Count 4.79 X10*6/uL (4.20-5.50); Red Cell Distribution Width 12.5 % (11.0-16.0); White Blood Count 4.6 X10*3/uL (4.8-10.8)
[2024-01-16 11:42] LABS: Alanine Aminotransferase 33 U/L (0-31); Albumin Level 4.5 g/dL (3.5-5.0); Alkaline Phosphatase 77 U/L (39-117); Anion Gap 12 (12-20); Aspartate Amino Transferase 23 U/L (5-31); Bilirubin Total 0.5 mg/dL (0.0-1.0); Blood Urea Nitrogen 12 mg/dL (9-16); Calcium 9.9 mg/dL (8.4-10.2); Carbon Dioxide 27 mmol/L (22-29); Chloride 105 mmol/L (96-108); Cholesterol 303 mg/dL (<200); Estimated Glomerular Filt Rate > 60; Glucose Fasting 96 mg/dL (60-99); HDL Cholesterol 67 mg/dL (>40); LDL Cholesterol Calculated 213 mg/dL (<100); Potassium 4.1 mmol/L (3.3-5.1); Sodium 140 mmol/L (135-145); Total Protein 7.4 g/dL (6.5-8.0); Triglycerides 119 mg/dL (<150)
[2024-01-16 12:01] LABS: Free T4 (Free Thyroxine) 1.18 ng/dL (0.71-1.85)
== END 2024-01-16 10:08 | disposition home or self-care (01) ==
LOC: HO.LAB 10:07
PROVIDERS: PCP Internal Medicine Medical Oncology; Visit Provider Internal Medicine Medical Oncology
DX: D36.9 Benign neoplasm, unspecified site (principal); C73 Malignant neoplasm of thyroid gland; D70.9 Neutropenia, unspecified; K58.9 Irritable bowel syndrome, unspecified; E78.00 Pure hypercholesterolemia, unspecified
CPT/HCPCS: 36415; 80053; 80061; 84439; 84443; 85025

== ENCOUNTER 2024-09-26 06:36 | Day surgery (SDC) | payer BC, SELFPAY ==
[2024-09-24 14:14] VITALS: BMI 23.5
[2024-09-26 06:40] VITALS: BP 129/70; PULSE 61; RESP 18; TEMP 36.9; O2SAT 99; BMI 22.9
[2024-09-26] MEDS: Lactated Ringers 1,000 ML 50 ML IVCONT (07:02)
--- NOTE | 2024-09-26 07:52 | HO.ANESPROP2 ---
[facility] Active Problems Active Problems: All Active Problems (Updated 09/24/24 @ 14:16 by Sary Perez RN) Hemangioma (Acute) Hematoma (Acute) Lipoma of left upper extremity (Acute) Past Medical History Medical History Thyroid cancer Functional capacity: independent ambulation Patient : No Family History Family History Mother Non-Hodgkin lymphoma Maternal Grandmother Breast cancer Paternal Grandmother Throat cancer Family history of problems with anesthesia: No Surgical History Surgical History H/O colonoscopy Hx of thyroidectomy Hx of excision of mass History of Problems with Anesthesia: No Social History Social History Household Members: Spouse Alcohol intake: current Alcohol intake frequency: holidays/special occasions only Alcohol type: other Patient Tobacco Use Status: Never used Tobacco Have you been hit, kicked, punched, or otherwise hurt by someone within the past year? If so, by whom?: No Are you DNR?: No Advance Directives: No Advance Directives Information Provided: Yes Meds Allergies Allergy/AdvReac Type Severity Reaction Status Date / Time Sulfa (Sulfonamide Allergy Intermediate HIVES Verified 12/13/21 09:40 Antibiotics) Active Medications: Current Medications Lactated Ringer's (Lr) 1,000 mls @ 50 mls/hr IVCONT .Q20H SARIKA Last Admin: 09/26/24 07:02 Dose: 50 mls/hr Sodium Biphosphate/Sodium Phosphate (Sodium Phosphate,Jewell-Dibasic 133 Ml Enema) 133 ml AR ONCE PRN PRN Reason: Poor Colonoscopy Prep Results Home Medications ?Medication ?Instructions ?Recorded ?Confirmed ?Last Taken ?Type levothyroxine 100 mcg tablet 100 mcg PO DAILY 12/24/19 09/24/24 09/25/24 History (Synthroid) liothyronine 5 mcg tablet 5 mcg PO DAILY 12/24/19 09/24/24 09/25/24 History Exam Height,Weight and Vital Signs: Height 5 ft 5 in Weight 62.3 kg Last Vital Signs Temp 98.5 F 09/26/24 06:40 Pulse 61 09/26/24 06:40 Resp 18 09/26/24 06:40 BP 129/70 09/26/24 06:40 Pulse Ox 99 09/26/24 06:40 O2 Del Method Room Air 09/26/24 06:40 Airway Mallampati Class: II TM Dist: >3cm Neck ROM: Full Heart: RRR Lungs: CTA Assessment and Plan Assessment Anesthesia Assessment: Anesthesia Plan Discussed Final Anesthetic Review Family History of Problems with Anesthesia: No History of Problems with Anesthesia: No NPO: Yes ASA Class: II Final Preanesthetic Review: Meds/Allgs Chart Reviewed, Consent Obtained/Reviewed and Anes Risks/Benef Reviewed Patient Risk: Low Procedure Risk: Low Anesthetic Plan Anesthetic Plan: MAC: Disposition: Standard PACU
[2024-09-26 08:36] VITALS: BP 87/47; PULSE 66; RESP 16; TEMP 36.1; O2SAT 97
--- NOTE | 2024-09-26 08:38 | P.BOP_ITS ---
Brief Operative Note Date of Service: 09/26/24 Pre-op diagnosis: Screening Post-op diagnosis: other (Polyp) Procedure: Colonoscopy to the cecum with cold snare polypectomy and placement of 2 Resolution clips Surgeon: Colin Whaley MD Anesthesia: MAC Was an Pharmacy Services Director used for this Procedure?: No Estimated blood loss (mL): 2.0 Pathology: other (A. Ascending colon polyp) Condition: stable Disposition: PACU
[2024-09-26 08:54] VITALS: BP 105/61; PULSE 59; RESP 17; TEMP 36.2; O2SAT 99
--- NOTE | 2024-09-26 11:29 | HO.POSTANES ---
Post Anesthesia Evaluation Post Anesthesia Evaluation Date of Service: 09/26/24 Vital Signs: Vital Signs Temp Pulse Resp BP Pulse Ox O2 Del Method 09/26/24 08:54 97.2 F 59 17 105/61 99 Room Air 09/26/24 08:36 97.0 F 66 16 87/47 L 97 Room Air 09/26/24 06:40 98.5 F 61 18 129/70 99 Room Air Anesthesia: Monitored Mental Status: Awake Pain Control: Satisfactory Nausea/Vomiting: None Hydration: Adequate Anesthesia-Related Issues: No Anes. Related Issues
--- NOTE | 2024-09-29 10:04 | OP_ITS ---
DATE OF SERVICE: 09/26/2024 SURGEON: Colin Whaley MD INDICATIONS: The patient presents for evaluation of personal history of tubular adenoma of the colon and need for colorectal cancer screening. Full consent has been obtained from her for this, including risks of bleeding and perforation. PREOPERATIVE DIAGNOSIS: POSTOPERATIVE DIAGNOSIS: PROCEDURE PERFORMED: Colonoscopy to the cecum with cold snare polypectomy x1 and placement of 2 resolution clips. ESTIMATED BLOOD LOSS: COMPLICATIONS: ANESTHESIA: Medication used, monitored anesthesia care. ASSISTANTS: SPECIMENS: PREOPERATIVE DIAGNOSES: Colorectal cancer screening and personal history of tubular adenoma of the colon. POSTOPERATIVE DIAGNOSES: Colorectal cancer screening and personal history of tubular adenoma of the colon, colon polyp, diverticulosis, and internal hemorrhoids. DESCRIPTION OF PROCEDURE: The patient was placed in the left lateral decubitus position. The digital rectal exam revealed no abnormalities. The [employer] [facility] [employer] video pediatric colonoscope was entered into the rectum and advanced easily to the cecum. Once in the cecum, I did identify normal-appearing cecal pouch with appendiceal orifice and a normal-appearing ileocecal valve. The entire cecum and ileocecal valve appeared normal. Scope was slowly withdrawn assessing all mucosal surfaces carefully. Preparation was excellent. In the ascending colon was a flat 10 mm polyp, which was removed by cold snare polypectomy and recovered by suction. The polypectomy site appeared clean, without any sign of residual polyp nor significant bleeding. Two resolution clips were applied to the polypectomy site with good deployment and good hemostasis. I did not visualize any other polyps, colitis, nor angiodysplasia. There was a mild amount of sigmoid diverticulosis. In the rectum, scope was retroflexed visualizing small internal hemorrhoids, but no other pathology. The rectal mucosa appeared normal. The scope was straightened and withdrawn from the patient. She tolerated the procedure well and was returned to the recovery area in stable condition. IMPRESSION: 1. Colon polyp. 2. Diverticulosis. 3. Internal hemorrhoids. PLAN: The results of the pathology will be checked. I would recommend a repeat colonoscopy in 5 years. She was advised not to use any aspirin and NSAIDs for 1 week. MD MARK Kohler/KANA / [id number]
== END 2024-09-26 09:07 | disposition home or self-care (01) ==
PROVIDERS: PCP Internal Medicine Medical Oncology; Visit Provider Internal Medicine
PROC: 0DJD8ZZ Inspection of Lower Intestinal Tract, Via Natural or Artificial Opening Endoscopic (ICD-10-PCS; CPT 45378; principal; 2024-09-26 07:30)
DX: Z12.11 Encounter for screening for malignant neoplasm of colon (principal); Z86.0101 Personal history of adenomatous and serrated colon polyps; D12.2 Benign neoplasm of ascending colon; K57.30 Diverticulosis of large intestine without perforation or abscess without bleeding; K64.8 Other hemorrhoids; Z85.850 Personal history of malignant neoplasm of thyroid; Z79.899 Other long term (current) drug therapy; Z88.2 Allergy status to sulfonamides; Z98.890 Other specified postprocedural states
CPT/HCPCS: 45385; 88305; J2003; J2704

== ENCOUNTER 2025-01-20 08:25 | Outpatient (REF) | payer BC, SELFPAY ==
[2025-01-20 08:36] LABS: MANUAL DIFF FLAG NO
[2025-01-20 08:56] LABS: Hematocrit 41.7 % (37.0-47.0); Hemoglobin 14.1 g/dl (12.0-16.0); Imm Gran Abs Auto 0.01 X10*3/uL (0.00-0.03); Imm Gran Pct Auto 0.2 % (0.0-0.4); Lymphocytes Absolute Auto 1.8 X10*3/uL (1.2-4.9); Mean Corpuscular HGB Conc 33.8 g/dl (31.0-35.0); Mean Corpuscular Hemoglobin 30.4 pg (27.0-33.0); Mean Corpuscular Volume 89.9 fL (80.0-98.0); NRBC Abs Auto 0.000 X10*3/uL (0.0-0.012); NRBC Pct Auto 0.0 /100WBC (0.0-0.2); Platelet Count 294 X10*3/uL (160-400); Red Blood Count 4.64 X10*6/uL (4.20-5.50); White Blood Count 5.4 X10*3/uL (4.8-10.8)
[2025-01-20 09:42] LABS: Alanine Aminotransferase 24 U/L (0-31); Albumin Level 4.5 g/dL (3.5-5.0); Alkaline Phosphatase 83 U/L (39-117); Anion Gap 10 (12-20); Aspartate Amino Transferase 22 U/L (5-31); Blood Urea Nitrogen 13 mg/dL (9-16); Calcium 9.9 mg/dL (8.4-10.2); Carbon Dioxide 26 mmol/L (22-29); Chloride 106 mmol/L (96-108); Cholesterol 291 mg/dL (<200); Estimated Glomerular Filt Rate > 60; HDL Cholesterol 60 mg/dL (>40); Potassium 4.1 mmol/L (3.3-5.1); Sodium 138 mmol/L (135-145); Total Protein 7.3 g/dL (6.5-8.0); Triglycerides 117 mg/dL (<150)
[2025-01-20 10:02] LABS: Free T4 (Free Thyroxine) 1.08 ng/dL (0.71-1.85); Thyroid Stimulating Hormone 1.50 uIU/mL (0.32-4.0)
== END 2025-01-20 08:26 | disposition home or self-care (01) ==
LOC: HO.LAB 08:25
PROVIDERS: PCP Internal Medicine Medical Oncology; Visit Provider Internal Medicine Medical Oncology
DX: C73 Malignant neoplasm of thyroid gland (principal); E78.00 Pure hypercholesterolemia, unspecified; D70.9 Neutropenia, unspecified
CPT/HCPCS: 36415; 80053; 80061; 84439; 84443; 84481; 85025